=== PATIENT | male | born 2000 | race African-American/Black ===

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

== ENCOUNTER 2021-03-07 15:54 | Emergency (ER) | payer OTHER ==
[2021-03-07 16:09] VITALS: BP 107/61; PULSE 95; TEMP 98.3; BMI 27.6
[2021-03-07] MEDS ORDERED: IBUPROFEN 400 MG TABLET (FP) PO ONE ×2 (17:10→17:11)
== END 2021-03-07 17:24 | disposition home or self-care (01) ==
LOC: FER 15:54
DX: S67.10XA Crushing injury of unspecified finger(s), initial encounter (principal)
CPT/HCPCS: 99283-25

== ENCOUNTER 2021-05-16 22:03 | Emergency (ER) | payer OTHER ==
[2021-05-16 22:22] VITALS: BP 120/78; PULSE 61; TEMP 97.8; BMI 28.3
[2021-05-17 00:57] LABS: HIV INTERPRETATION NEGATIVE (NEGATIVE)
== END 2021-05-16 23:23 | disposition home or self-care (01) ==
LOC: FER 22:03
DX: B08.1 Molluscum contagiosum (principal)
CPT/HCPCS: 36415; 86780; 87389; 87491; 87591; 99283-25

== ENCOUNTER 2022-05-26 02:16 | Emergency (ER) | payer OTHER ==
[2022-05-26 02:22] VITALS: BP 118/64; PULSE 82; RESP 16; TEMP 97.7; BMI 27.0
[2022-05-26 03:06] LABS: EPI CELLS 1 /uL (0-25.1); HYALINE CASTS 0 /uL (0-3.1); PH,URINE 5.5 (5.0-8.0); URINE APPEARANCE CLEAR; URINE BACTERIA 1 /uL (0-1359); URINE BILIRUBIN NEGATIVE (NEGATIVE); URINE COLOR YELLOW; URINE GLUCOSE (UA) NEGATIVE (NEGATIVE); URINE KETONE NEGATIVE (NEGATIVE); URINE LEUK ESTERASE NEGATIVE (NEGATIVE); URINE NITRITE NEGATIVE (NEGATIVE); URINE PROTEIN NEGATIVE (NEGATIVE); URINE RBC 262 /uL (0-23.9); URINE UROBILINOGEN 0.2 mg/dL (0.2-1.0); URINE WBC 2 /uL (0-25.8)
[2022-05-26] MEDS ORDERED: CIPROFLOXACIN 500 MG TABLET (RESTRICTED TO ID) PO ONE (03:15)
[2022-05-26] MEDS ORDERED: CIPROFLOXACIN 250 MG TABLET (RESTRICTED TO ID) PO ONE (03:21)
== END 2022-05-26 03:24 | disposition home or self-care (01) ==
LOC: FER 02:16
DX: R31.9 Hematuria, unspecified (principal)
CPT/HCPCS: 81003; 87086; 99283-25